=== PATIENT | female | born 2000 | race Caucasian/White ===

== ENCOUNTER 2023-11-21 23:13 | Emergency (ER) | payer OTHER, SELFPAY ==
[2023-11-21] MEDS ORDERED: Morphine 4 MG/ML VIAL ONE (23:24)
[2023-11-21] MEDS ORDERED: Ondansetron ODT 4 MG TAB ONE (23:25)
[2023-11-21] MEDS ORDERED: Ketorolac Tromethamine 30 MG (1 mL) VIAL ONE (23:25)
[2023-11-21] MEDS ORDERED: predniSONE 20 MG TAB ONE (23:25)
== END 2023-11-22 00:30 | disposition home or self-care (01) ==
LOC: ERS 23:13
DX: M53.3 Sacrococcygeal disorders, not elsewhere classified (principal); F17.200 Nicotine dependence, unspecified, uncomplicated; W22.8XXA Striking against or struck by other objects, initial encounter; Z55.6 Problems related to health literacy
CPT/HCPCS: 96372; 99283; J1885; J2270; J7512; Q0162